=== PATIENT | female | born 1990 | race Caucasian/White ===

== ENCOUNTER 2018-05-19 08:20 | Emergency (ER) | payer OTHER ==
[2018-05-19] MEDS ORDERED: ONDANSETRON 4 MG/2 ML VIAL ONE ×2 (08:56→15:06)
[2018-05-19] MEDS ORDERED: FENTANYL CITR 100 MCG/2 ML ONE ×2 (08:56→10:33)
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
[2018-05-19 11:10] LABS: Hematocrit 38.4 % (36.0-45.0); RBC Red Blood Cell Count 4.23 M/uL (3.86-4.86)
[2018-05-19 11:11] LABS: MCH 30.8 pg (27.0-35.0); MCV 90.7 fL (80-100)
[2018-05-19] MEDS ORDERED: MIDAZOLAM HCL 2 MG/2 ML INJ ONE (11:11)
[2018-05-19 11:12] LABS: Lymphocytes % 4.1 % (15.3-44.8); MPV 10.5 fL (7.6-11.3); Monocytes % 5.4 % (3.3-12.3)
[2018-05-19 11:13] LABS: Urine Blood 2+ (NEG); Urine Glucose NEGATIVE (NEG); Urine Protein 2+ (NEG); Urine Specific Gravity 1.025 (1.005-1.030)
[2018-05-19 11:13] LABS: BUN Blood Urea Nitrogen 7 mg/dL (7-18); Bicarbonate 22 mmol/L (21-32); Glucose Level 51 mg/dL (74-106); Potassium 3.6 mmol/L (3.5-5.1); Sodium Level 155 mmol/L (136-145)
[2018-05-19 11:13] LABS: Absolute Neutrophil 23.6 K/uL (1.8-8.0); Basophils % 0.4 % (0-1.3)
[2018-05-19 11:14] LABS: Absolute Lymphocytes (CBC) 1.1 K/uL (0.7-4.9); Absolute Monocytes 1.4 K/uL (0.1-1.3)
[2018-05-19 11:21] LABS: Blood Morphology Comment NOT SEEN (NOT SEEN); Platelet Estimate ADEQ
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
[2018-05-19 15:49] VITALS: O2SAT 100
[2018-05-19 15:56] VITALS: BP 137/74; TEMP 98.3
== END 2018-05-19 15:15 | disposition short-term general hospital (02) ==
LOC: ER 08:20
PROC: 2W3DX1Z Immobilization of Left Lower Arm using Splint (ICD-10-PCS; principal; 2018-05-19)
PROC: 2W3CX1Z Immobilization of Right Lower Arm using Splint (ICD-10-PCS; 2018-05-19)
PROC: 2W3QX1Z Immobilization of Right Lower Leg using Splint (ICD-10-PCS; 2018-05-19)
DX: S62.501A Fracture of unspecified phalanx of right thumb, initial encounter for closed fracture (principal); S82.51XA Displaced fracture of medial malleolus of right tibia, initial encounter for closed fracture; S82.001A Unspecified fracture of right patella, initial encounter for closed fracture; S42.302A Unspecified fracture of shaft of humerus, left arm, initial encounter for closed fracture; V59.40XA Driver of pick-up truck or van injured in collision with unspecified motor vehicles in traffic accident, initial encounter
CPT/HCPCS: 36415; 70450; 71260; 72125; 74177; 80048; 81003; 81025; 82962; 85025; 86850; 86900; 86901; 99285; J2250; J2405; J3010; Q9967